=== PATIENT | female | born 1965 | race Caucasian/White ===

== ENCOUNTER 2025-05-29 06:19 | Day surgery (SDC) | payer OTHER, SELFPAY | END 2025-05-29 15:01 | disposition home or self-care (01) | LOC: GI 06:19 | PROVIDERS: ATTENDING PHYSICIAN Specialist; FAMILY PHYSICIAN Family Medicine | DX: Z12.11 Encounter for screening for malignant neoplasm of colon (principal); K63.5 Polyp of colon; K22.70 Barrett's esophagus without dysplasia; K22.89 Other specified disease of esophagus; Z86.0101 Personal history of adenomatous and serrated colon polyps | CPT/HCPCS: 45385; 45380; 43239; 88305 ==

== ENCOUNTER → 2025-06-02 12:23 | Outpatient (REF) | payer OTHER, SELFPAY | LOC: PAVMRI 12:23 | PROVIDERS: ATTENDING PHYSICIAN Specialist; FAMILY PHYSICIAN Family Medicine | DX: K86.89 Other specified diseases of pancreas (principal) | CPT/HCPCS: 74183; A9575 ==